=== PATIENT | female | born 1990 | race Caucasian/White ===

== ENCOUNTER 2018-05-25 20:07 | Outpatient (CLI) | payer OTHER ==
[~2018-05-25] VITALS: Ht 167.6 cm; Wt 122.5 kg
[~2018-05-25 20:07] MED LIST: ADVIL200 MG PO; PEPTO BISMOL240 ML PO; PERCOCET 5/31 TABLET PO
[2018-05-25 20:31] VITALS: BP 130/98
[2018-05-25] MEDS ORDERED: PRAZOSIN HCL1 MG PO (21:02)
[2018-05-25 21:17] VITALS: BP 167/110
[2018-05-25 21:19] VITALS: BP 156/109
[2018-05-25 21:47] LABS: BASOPHIL (%) 0.5 % (0-1); BASOPHIL COUNT 0.1 K/uL (0-0.1); EOSINOPHIL (%) 0.1 % (0-5); HEMATOCRIT 46.4 % (36.0-46.0); HEMOGLOBIN 15.9 G/DL (11.9-15.5); IMMATURE GRANULOCYTE (%) 0.5 % (0.0-0.7); LYMPHOCYTE (%) 7.4 % (15-42); MCH 30.5 PG (29.0-34.0); MCHC 34.3 G/DL (30.0-36.0); MCV 89.1 FL (83-99); MONOCYTE (%) 9.2 % (3-12); MONOCYTE COUNT 1.2 K/uL (0-0.8); NEUTROPHIL (%) 82.3 % (45-76); NEUTROPHIL COUNT 10.9 K/uL (1.8-6.4); PLATELET COUNT 260 K/uL (156-360); RBC DIS.WIDTH-CV 13.6 % (11.8-14.6); RBC DIS.WIDTH-SD 44.2 % (39-53); RED BLOOD COUNT 5.21 M/uL (3.80-5.20); WHITE BLOOD COUNT 13.2 K/uL (4.1-10.2)
[2018-05-25 22:07] LABS: INTER. NORMALIZED RATIO 1.3
[2018-05-25 22:09] LABS: PTT 25.9 SEC (25-37)
[2018-05-25 22:13] VITALS: BP 117/70
[2018-05-25 22:16] LABS: APPEARANCE SL.HAZY ((CLEAR)); BILIRUBIN SMALL; BLOOD NEGATIVE; COLOR AMBER ((YELLOW)); GLUCOSE (STRIP) NEGATIVE; KETONES 80; LEUKOCYTES NEGATIVE; NITRITE NEGATIVE; PROTEIN (STRIP) 100; SPECIFIC GRAVITY 1.031 (1.000-1.030)
[2018-05-25 22:54] LABS: BACTERIA 1+ /HPF; EPITHELIAL CELLS 2+ /HPF; MUCUS NONE SEEN /LPF; RED BLOOD CELLS 0-5 /HPF (0-5); UCUL ADDED? NO; WHITE BLOOD CELLS 0-5 /HPF (0-5)
[2018-05-25 22:55] LABS: UR CREATININE CONCENTRATION 284.3 MG/DL
[2018-05-25 22:57] LABS: FIBRINOGEN 479 mg/dL (150-450)
[2018-05-25 23:19] VITALS: BP 132/87
[2018-05-25 23:49] VITALS: BP 121/68
[2018-05-26] VITALS (8 sets, daily range): BP systolic 97–160; BP diastolic 48–84
[2018-05-26 01:26] LABS: LACTATE DEHYDROGENASE 167 IU/L (20-246)
[2018-05-26 01:30] LABS: GLUCOSE 99 mg/dL (70-99); UREA NITROGEN (BUN) 11 mg/dL (9-23)
[2018-05-26 01:31] LABS: ALT (GPT) 564 IU/L (3-49); AST (GOT) 227 IU/L (2-34); CHLORIDE 99 MEQ/L (99-109); CREATININE 0.7 MG/DL (0.6-1.3); GFR ESTIMATE (CALCULATED) > 59 mL/min/; SODIUM 135 MEQ/L (136-147); TOTAL BILIRUBIN 0.9 MG/DL (0.0-1.0)
[2018-05-26 01:32] LABS: ALKALINE PHOSPHATASE 107 IU/L (3-129)
== END 2018-05-26 05:41 | disposition designated cancer center or children's hospital, planned readmission (85) ==
LOC: LDRP-OP 20:07 → 2WEST 20:10
PROVIDERS: Advanced Practice Midwife
DX: O99.283 Endocrine, nutritional and metabolic diseases complicating pregnancy, third trimester (principal); E86.0 Dehydration; O99.213 Obesity complicating pregnancy, third trimester; E66.9 Obesity, unspecified; Z68.41 Body mass index [BMI] 40.0-44.9, adult; Q85.8 Other phakomatoses, not elsewhere classified; D35.00 Benign neoplasm of unspecified adrenal gland; Z3A.33 33 weeks gestation of pregnancy
CPT/HCPCS: 76805; 76810; 80053; 81003; 82570; 83615; 84156; 85025; 85384; 85610; 85730; 87086; G0378; J2405

== ENCOUNTER 2018-06-30 13:20 | Emergency (ER) | payer OTHER ==
[~2018-06-30] VITALS: Ht 167.6 cm; Wt 107.0 kg
[~2018-06-30 13:20] MED LIST changes: +PRAZOSIN HCL1 MG PO
[2018-06-30 14:31] LABS: HEMATOCRIT 42.3 % (36.0-46.0); HEMOGLOBIN 14.3 G/DL (11.9-15.5); MCH 29.3 PG (29.0-34.0); MCHC 33.8 G/DL (30.0-36.0); MCV 86.7 FL (83-99); PLATELET COUNT 286 K/uL (156-360); RBC DIS.WIDTH-CV 12.9 % (11.8-14.6); RBC DIS.WIDTH-SD 40.5 % (39-53); RED BLOOD COUNT 4.88 M/uL (3.80-5.20); WHITE BLOOD COUNT 11.3 K/uL (4.1-10.2)
[2018-06-30 14:40] LABS: ALBUMIN 4.6 g/dL (3.2-4.8); CHLORIDE 104 mEq/L (99-109); POTASSIUM 4.2 mEq/L (3.7-5.4); SODIUM 141 mEq/L (136-147)
[2018-06-30 14:43] LABS: GLUCOSE 117 mg/dL (70-99); TOTAL PROTEIN 7.9 g/dL (6.4-8.3)
[2018-06-30 14:45] LABS: TOTAL BILIRUBIN 0.5 mg/dL (0.0-1.0)
[2018-06-30 14:46] LABS: ALKALINE PHOSPHATASE 75 IU/L (3-129); CREATININE 0.9 mg/dL (0.6-1.3); GFR ESTIMATE (CALCULATED) > 59 mL/min/
[2018-06-30 14:47] LABS: UREA NITROGEN (BUN) 11 mg/dL (9-23)
[2018-06-30 14:48] LABS: AST (GOT) 11 IU/L (2-34)
[2018-06-30 14:49] LABS: ALT (GPT) 13 IU/L (3-49); URIC ACID 6.3 mg/dL (3.1-9.2)
[2018-06-30 16:18] LABS: APPEARANCE SL.HAZY ((CLEAR)); BILIRUBIN NEGATIVE; BLOOD MODERATE; COLOR YELLOW ((YELLOW)); GLUCOSE (STRIP) NEGATIVE; KETONES 20; LEUKOCYTES MODERATE; NITRITE POSITIVE; PROTEIN (STRIP) NEGATIVE; UROBILINOGEN 0.2 MG/DL (0.2-1.0)
[2018-06-30 16:37] LABS: BACTERIA RARE /HPF; EPITHELIAL CELLS 1+ /HPF; HYALINE CASTS 0-5 /LPF; MUCUS TRACE /LPF; RED BLOOD CELLS 0-5 /HPF (0-5); UCUL ADDED? YES; WHITE BLOOD CELLS 30-40 /HPF (0-5)
[2018-06-30 19:58] VITALS: BP 150/85
[2018-07-02 11:23] LABS: LD-1 23; LD-2 38; LD-3 21
[2018-07-02 11:24] LABS: LD-4 8; LD-5 11
== END 2018-06-30 20:00 | disposition short-term general hospital (02) ==
LOC: EME 13:20
PROVIDERS: Emergency Medicine
DX: O90.89 Other complications of the puerperium, not elsewhere classified (principal); G93.89 Other specified disorders of brain; G91.9 Hydrocephalus, unspecified; G93.6 Cerebral edema; Q85.8 Other phakomatoses, not elsewhere classified; R56.9 Unspecified convulsions; D35.00 Benign neoplasm of unspecified adrenal gland; C79.31 Secondary malignant neoplasm of brain; Y93.E1 Activity, personal bathing and showering
CPT/HCPCS: 70450; 80048; 80053; 81003; 83615 90; 83625 90; 84550; 85027; 87077; 87086; 87186; 93005; 99281; 99285; J1100; J1953; J7030; J7050